=== PATIENT | female | born 1935 | race Caucasian/White ===

== ENCOUNTER 2017-12-12 12:12 | Emergency (ER) | payer MEDICARE, BC ==
[2017-12-12] MEDS ORDERED: LORazepam 2 MG/ML SDV IM ONE ×2 (13:07→13:52)
[2017-12-12] MEDS ORDERED: Haloperidol Lactate 5 MG/ML SDV IM ONE ×2 (13:07→13:52)
--- NOTE | 2017-12-12 13:22 | EDM.PDOCBH ---
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 She is supposed to go to the [facility]. Has a history of Alzheimer's and is exhibiting worsening combative behavior. She is on topical Seroquel and topical Ativan but these are not controlling her behaviors. She has reportedly been physically and verbally aggressive towards staff and they are no longer able to manage her. She sees a primary care provider and a psychiatric nurse practitioner. They have been in contact with the [facility] and she has been screened by [facility]. Plan will be to go to the [facility]. She is here for medical clearance. Per the CASINO CONTROLLER she has not had any fevers, vomiting, diarrhea or bloody stools. She is not complaining of anything. Patient is pleasantly demented and is unable to provide any accurate history. Patient's daughter is her power of commercial litigation attorney. She is present to the ER and signed paperwork for voluntary committal. Patient is a DNR, DNI. Patient Has a history of a right breast mass that her family and her primary care aware of. Daughter reports there has now been involvement to the right axilla. They're pursuing no treatment at this time. - Related Data Allergies Allergy/AdvReac Type Severity Reaction Status Date / Time acetaminophen [From Tylenol] Allergy Other Verified 12/12/17 12:42 amlodipine Allergy Other Verified 12/12/17 12:42 atorvastatin Allergy Other Verified 12/12/17 12:42 ciprofloxacin [From Cipro] Allergy Other Verified 12/12/17 12:42 latex Allergy Other Verified 12/12/17 12:42 nifedipine Allergy Other Verified 12/12/17 12:42 promethazine Allergy Other Verified 12/12/17 12:42 Quinolones Allergy Other Verified 12/12/17 12:42 rofecoxib Allergy Other Verified 12/12/17 12:42 Past Medical History Cardiovascular History: Reports: Other (See Below) Other Cardiovascular History: atherosclerotic heart disease Musculoskeletal History: Reports: Osteoarthritis Psychiatric History: Reports: Alzheimers Disease, Anxiety, Dementia, Depression , Other (See Below) Other Psychiatric History: insomnia Endocrine/Metabolic History: Reports: Diabetes, Type II Social & Family History - Tobacco Use Smoking Status *Q: Never Smoker - Caffeine Use Caffeine Use: Reports: Coffee, Tea - Recreational Drug Use Recreational Drug Use: No ED ROS GENERAL - Review of Systems Review Of Systems: Unable To Obtain (per CASINO CONTR[employer]ER) Constitutional: Denies: Fever GI/Abdominal: Denies: Bloody Stool, Diarrhea, Vomiting ED EXAM, BEHAVIORAL HEALTH - Physical Exam Exam: See Below Exam Limited By: No Limitations General Appearance: Alert, WD/WN, No Apparent Distress Respiratory/Chest: No Respiratory Distress, Lungs Clear, Normal Breath Sounds Cardiovascular: Normal Peripheral Pulses, Regular Rate, Rhythm, No Murmur GI/Abdominal: Soft, Non-Tender Neurological: Alert, Other (Confused conversation) Psychiatric: Alert. No: Threatening Behavior (Patient has been verbally aggressive but not physically aggressive toward staff.) Skin Exam: Warm, Dry, Normal color COURSE, BEHAVIORAL HEALTH COMP - Course Vital Signs: Last Vital Signs Temp 97.5 F 12/12/17 15:15 Pulse 79 12/12/17 15:15 Resp 16 12/12/17 15:15 BP 128/89 12/12/17 15:15 Pulse Ox 97 12/12/17 15:15 Orders, Labs, Meds: Active Orders 24 hr Category Date Time Status Initiate Restraint Protocol [RC] ASDIRECTED Care 12/12/17 13:07 Inactive Peripheral IV Care [RC] . DIRECTED Care 12/12/17 16:01 Active Magnesium Sulfate/Water [Magnesium Sulfate 2 GM in Med 12/12/17 15:57 Active Water 50 ML] 2 gm Premix Bag 1 bag IV ONETIME Sodium Chloride 0.9% [Normal Saline] 500 ml Med 12/12/17 15:57 Active IV ONETIME Sodium Chloride 0.9% [Saline Flush] Med 12/12/17 15:57 Active 10 ml FLUSH ASDIRECTED PRN Peripheral IV Insertion Adult [OM.PC] Routine Oth 12/12/17 15:57 Ordered Medication Orders Magnesium Sulfate 2 gm/ Premix 50 mls @ 50 mls/hr IV ONETIME ONE Stop: 12/12/17 16:56 Last Admin: 12/12/17 16:19 Dose: 50 mls/hr Sodium Chloride (Normal Saline) 500 mls @ 500 mls/hr IV ONETIME ONE Stop: 12/12/17 16:56 Last Admin: 12/12/17 16:18 Dose: 500 mls/hr Sodium Chloride (Saline Flush) 10 ml FLUSH ASDIRECTED PRN PRN Reason: Keep Vein Open Laboratory Tests 12/12/17 12/12/17 12/12/17 Range/Units 14:08 14:08 14:08 WBC 4.72 (3.98-10.04) K/mm3 RBC 4.05 (3.98-5.22) M/mm3 Hgb 12.7 (11.2-15.7) gm/L Hct 37.5 (34.1-44.9) % MCV 92.6 (79.4-94.8) fl MCH 31.4 (25.6-32.2) pg MCHC 33.9 (32.2-35.5) g/dl RDW Std Deviation 50.6 H (36.4-46.3) fL Plt Count 134 L (182-369) K/mm3 MPV 10.0 (9.4-12.3) fl Neut % (Auto) 62.8 (34.0-71.1) % Lymph % (Auto) 25.8 (19.3-51.7) % [place] % (Auto) 11.0 (4.7-12.5) % Eos % (Auto) 0 L (0.7-5.8) Baso % (Auto) 0.2 (0.1-1.2) % Neut # (Auto) 2.96 (1.56-6.13) K/mm3 Lymph # (Auto) 1.22 (1.18-3.74) K/mm3 [place] # (Auto) 0.52 H (0.24-0.36) K/mm3 Eos # (Auto) 0.00 L (0.04-0.36) K/mm3 Baso # (Auto) 0.01 (0.01-0.08) K/mm3 Sodium 141 (136-145) mEq/L Potassium 3.3 L (3.5-5.1) mEq/L Chloride 105 (98-107) mEq/L Carbon Dioxide 24 (21-32) mEq/L Anion Gap 15.3 H (5-15) BUN 17 (7-18) mg/dL Creatinine 0.9 (0.55-1.02) mg/dL Est Cr Clr Drug Dosing 40.55 mL/min Estimated GFR (MDRD) > 60 (>60) mL/min BUN/Creatinine Ratio 18.9 H (14-18) Glucose 92 (83-115) mg/dL Calcium 8.6 (8.5-10.1) mg/dL Magnesium 1.3 L (1.8-2.4) mg/dl Total Bilirubin 0.9 (0.2-1.0) mg/dL AST 19 (15-37) U/L ALT 13 L (14-59) U/L Alkaline Phosphatase 59 (46-116) U/L Total Protein 6.6 (6.4-8.2) g/dl Albumin 3.0 L (3.4-5.0) g/dl Globulin 3.6 gm/dL Albumin/Globulin Ratio 0.8 L (1-2) TSH 3rd Generation 0.843 (0.358-3.74) uIU/mL Urine Color (Yellow) Urine Appearance (Clear) Urine pH (5.0-8.0) Ur Specific [place] (1.005-1.030) Urine Protein (Negative) Urine Glucose (UA) (Negative) Urine Ketones (Negative) Urine Occult Blood (Negative) Urine Nitrite (Negative) Urine Bilirubin (Negative) Urine Urobilinogen (0.2-1.0) Ur Leukocyte Esterase (Negative) Urine RBC (0-5) /hpf Urine WBC (0-5) /hpf Ur Epithelial Cells (0-5) /hpf Urine Bacteria (FEW) /hpf Urine Mucus (FEW) /hpf Salicylates 2.1 L (2.8-20) mg/dL Urine Opiates Screen (NEGATIVE) Ur Buprenorphine Scrn (NEGATIVE) Ur Oxycodone Screen (NEGATIVE) Urine Methadone Screen (NEGATIVE) Ur Propoxyphene Screen (NEGATIVE) Acetaminophen 0 L (10-30) ug/mL Ur Barbiturates Screen (NEGATIVE) Ur Tricyclics Screen (NEGATIVE) Ur Phencyclidine Scrn (NEGATIVE) Ur Amphetamine Screen (NEGATIVE) U Methamphetamines Scrn (NEGATIVE) U Benzodiazepines Scrn (NEGATIVE) U Cocaine Metab Screen (NEGATIVE) U Marijuana (THC) Screen (NEGATIVE) Ethyl Alcohol 0.00 (0.00) gm% 12/12/17 12/12/17 Range/Units 15:25 15:25 WBC (3.98-10.04) K/mm3 RBC (3.98-5.22) M/mm3 Hgb (11.2-15.7) gm/L Hct (34.1-44.9) % MCV (79.4-94.8) fl MCH (25.6-32.2) pg MCHC (32.2-35.5) g/dl RDW Std Deviation (36.4-46.3) fL Plt Count (182-369) K/mm3 MPV (9.4-12.3) fl Neut % (Auto) (34.0-71.1) % Lymph % (Auto) (19.3-51.7) % [place] % (Auto) (4.7-12.5) % Eos % (Auto) (0.7-5.8) Baso % (Auto) (0.1-1.2) % Neut # (Auto) (1.56-6.13) K/mm3 Lymph # (Auto) (1.18-3.74) K/mm3 [place] # (Auto) (0.24-0.36) K/mm3 Eos # (Auto) (0.04-0.36) K/mm3 Baso # (Auto) (0.01-0.08) K/mm3 Sodium (136-145) mEq/L Potassium (3.5-5.1) mEq/L Chloride (98-107) mEq/L Carbon Dioxide (21-32) mEq/L Anion Gap (5-15) BUN (7-18) mg/dL Creatinine (0.55-1.02) mg/dL Est Cr Clr Drug Dosing mL/min Estimated GFR (MDRD) (>60) mL/min BUN/Creatinine Ratio (14-18) Glucose (83-115) mg/dL Calcium (8.5-10.1) mg/dL Magnesium (1.8-2.4) mg/dl Total Bilirubin (0.2-1.0) mg/dL AST (15-37) U/L ALT (14-59) U/L Alkaline Phosphatase (46-116) U/L Total Protein (6.4-8.2) g/dl Albumin (3.4-5.0) g/dl Globulin gm/dL Albumin/Globulin Ratio (1-2) TSH 3rd Generation (0.358-3.74) uIU/mL Urine Color Kimberly H (Yellow) Urine Appearance Clear (Clear) Urine pH 6.0 (5.0-8.0) Ur Specific [place] > or = 1.030 (1.005-1.030) Urine Protein 1+ H (Negative) Urine Glucose (UA) Negative (Negative) Urine Ketones 1+ H (Negative) Urine Occult Blood Negative (Negative) Urine Nitrite Negative (Negative) Urine Bilirubin 2+ H (Negative) Urine Urobilinogen 2.0 H (0.2-1.0) Ur Leukocyte Esterase Negative (Negative) Urine RBC 0-5 (0-5) /hpf Urine WBC 0-5 (0-5) /hpf Ur Epithelial Cells 0-5 (0-5) /hpf Urine Bacteria Few (FEW) /hpf Urine Mucus Not seen (FEW) /hpf Salicylates (2.8-20) mg/dL Urine Opiates Screen Negative (NEGATIVE) Ur Buprenorphine Scrn Negative (NEGATIVE) Ur Oxycodone Screen Negative (NEGATIVE) Urine Methadone Screen Negative (NEGATIVE) Ur Propoxyphene Screen Negative (NEGATIVE) Acetaminophen (10-30) ug/mL Ur Barbiturates Screen Negative (NEGATIVE) Ur Tricyclics Screen Negative (NEGATIVE) Ur Phencyclidine Scrn Negative (NEGATIVE) Ur Amphetamine Screen Negative (NEGATIVE) U Methamphetamines Scrn Negative (NEGATIVE) U Benzodiazepines Scrn Presumptive positive H (NEGATIVE) U Cocaine Metab Screen Negative (NEGATIVE) U Marijuana (THC) Screen Negative (NEGATIVE) Ethyl Alcohol (0.00) gm% Medications Generic Name Dose Route Start Last Admin Trade Name Freq PRN Reason Stop Dose Admin Magnesium Sulfate 2 gm/ Premix 50 mls @ 50 mls/hr 12/12/17 15:57 12/12/17 16: 19 IV 12/12/17 16:56 50 mls/hr ONETIME ONE Administration Sodium Chloride 500 mls @ 500 mls/hr 12/12/17 15:57 12/12/17 16:18 Normal Saline IV 12/12/17 16:56 500 mls/hr ONETIME ONE Administration Sodium Chloride 10 ml 12/12/17 15:57 Saline Flush FLUSH ASDIRECTED PRN Keep Vein Open Discontinued Medications Generic Name Dose Route Start Last Admin Trade Name Leti PRN Reason Stop Dose Admin Haloperidol Lactate 3 mg 12/12/17 13:07 12/12/17 13:28 Haldol IM 12/12/17 13:08 3 mg ONETIME ONE Administration Lorazepam 1 mg 12/12/17 13:07 12/12/17 13:28 Ativan IM 12/12/17 13:08 1 mg ONETIME ONE Administration Lorazepam 1 mg 12/12/17 16:38 12/12/17 16:43 Ativan IVPUSH 12/12/17 16:39 1 mg ONETIME ONE Administration Re-Assessment/Re-Exam: 16:21 Patient has not been combative on the ER. She has been verbally aggressive but has not been combative. Able to obtain labs, Cath urine specimen and give IM medications. We were able to place an IV and will give her IV fluids and magnesium as her magnesium is a little low. patient's daughter who is her power of commercial litigation attorney and present to the ER and signed paperwork so she is a voluntarily going to the [facility]. I discussed case with the patient's primary care provider, Dr. Ambriz at 14: 48. Reports that she has not seen her in several weeks. She has done a halfway clearance but does not any medical clearance for her. She has not had labs since July. Reports the right breast mass but states them is not pursuing treatment at this time. Discussed case with [facility]. They tell me that she has been screened and is clear to go the [facility]. I discussed the case Dr. Abdi at the [facility]. He agrees to accept the patient. We will send the patient by ambulance for IV fluids and monitoring as well as needed ativan and haldol. Medical Clearance: 12/12/17 16:59 Medically cleared to go to the [facility]. Discharge vs Psych Eval/Treatment:: 12/12/17 16:59 Patient to be transferred by EMS to the [facility]. Dr. Abdi accepting. Departure - Departure Time of Disposition: 17:00 Disposition: DC/Tfer to Psych Hosp/Unit 65 Condition: Fair Clinical Impression: Dementia, Alzheimer's dementia with behavioral disturbance - Discharge Information *PRESCRIPTION DRUG MONITORING PROGRAM REVIEWED*: No *COPY OF PRESCRIPTION DRUG MONITORING REPORT IN PATIENT SVETLANA: No Referrals: Izabella Jasso MD [Primary Care Provider] - Forms: ED Department Discharge Additional Instructions: Patient to go by ground ambulance for monitoring, IV fluids and as needed Ativan and Haldol. Dr. Orozco at the [facility] accepting. - My Orders Last 24 Hours: My Active Orders 12/12/17 13:07 Initiate Restraint Protocol [RC] ASDIRECTED 12/12/17 15:57 Magnesium Sulfate/Water [Magnesium Sulfate 2 GM in Water 50 ML] 2 gm Premix Bag 1 bag IV ONETIME Sodium Chloride 0.9% [Normal Saline] 500 ml IV ONETIME Sodium Chloride 0.9% [Saline Flush] 10 ml FLUSH ASDIRECTED PRN Peripheral IV Insertion Adult [OM.PC] Routine 12/12/17 16:01 Peripheral IV Care [RC] . DIRECTED - Assessment/Plan Last 24 Hours: My Active Orders 12/12/17 13:07 Initiate Restraint Protocol [RC] ASDIRECTED 12/12/17 15:57 Magnesium Sulfate/Water [Magnesium Sulfate 2 GM in Water 50 ML] 2 gm Premix Bag 1 bag IV ONETIME Sodium Chloride 0.9% [Normal Saline] 500 ml IV ONETIME Sodium Chloride 0.9% [Saline Flush] 10 ml FLUSH ASDIRECTED PRN Peripheral IV Insertion Adult [OM.PC] Routine 12/12/17 16:01 Peripheral IV Care [RC] . DIRECTED
[2017-12-12] MEDS ORDERED: diphenhydrAMINE 50 MG/ML SDV IM ONE (13:52)
[2017-12-12 14:59] LABS: ACETAMINOPHEN 0 ug/mL (10-30)
[2017-12-12] MEDS ORDERED: Magnesium Sulfate/Water 2 GM in Premix Bag 1 BAG IV ONE (15:57)
[2017-12-12] MEDS ORDERED: Sodium Chloride 0.9% 500 ML IV ONE (15:57)
[2017-12-12] MEDS ORDERED: Sodium Chloride 0.9% 10 ML Syringe FLUSH PRN (15:57)
[2017-12-12] MEDS ORDERED: LORazepam 2 MG/ML SDV IVPUSH ONE (16:38)
== END 2017-12-12 17:15 ==
LOC: JD.ED 12:12
DX: G30.9 Alzheimer's disease, unspecified (principal); F02.81 Dementia in other diseases classified elsewhere, unspecified severity, with behavioral disturbance; E11.9 Type 2 diabetes mellitus without complications; Z88.8 Allergy status to other drugs, medicaments and biological substances; Z91.040 Latex allergy status
CPT/HCPCS: 36415; 80053; 80306; 81001; 83735; 84443; 85025; 96365; 96372; 96375; 99285; G0480; J1630; J2060; J7040; 99284; J3475

== ENCOUNTER 2018-04-10 15:27 | Inpatient (IN) | payer MEDICARE, BC ==
[2018-04-10] MEDS ORDERED: Sodium Chloride 0.9% 1,000 ML IV ONE (16:06)
[2018-04-10] MEDS ORDERED: cefTRIAXone 1 GM in Sodium Chloride 0.9% 100 ML IV ONE (16:27)
--- NOTE | 2018-04-10 16:29 | EDM.PDOC ---
ED HPI GENERAL MEDICAL PROBLEM - General Chief Complaint: General Stated Complaint: DEHYDRATION AND UTI Time Seen by Provider: 04/10/18 15:36 Source of Information: Reports: Family (, daughter), RN, RN Notes Reviewed History Limitations: Reports: Physical Impairment (advanced dementia) - History of Present Illness INITIAL COMMENTS - FREE TEXT/NARRATIVE: The patient is sent from the [facility] assisted. We are told that the patient has had increased confusion and decreased oral intake this week. A BMP, CBC, and urinalysis by quick catheter were obtained yesterday. We have difficulty reading the facts of the lab results, but her sodium was found to be either 152 or 162, with a BUN/Cr of 37/1.15. Her CBC was remarkable only for platelets depressed at 68. Her urinalysis was apparently consistent with a UTI. Oral Bactrim was ordered, however, due to the patient's condition, she is refusing to take the antibiotic. She is therefore sent to us for IV fluid and IV antibiotics. The patient is DNR and DNI. Her PCP is Dr. Vazquez. - Related Data Allergies Allergy/AdvReac Type Severity Reaction Status Date / Time acetaminophen [From Tylenol] Allergy Other Verified 04/10/18 15:50 amlodipine Allergy Other Verified 04/10/18 15:50 atorvastatin Allergy Other Verified 04/10/18 15:50 ciprofloxacin [From Cipro] Allergy Other Verified 04/10/18 15:50 latex Allergy Other Verified 04/10/18 15:50 nifedipine Allergy Other Verified 04/10/18 15:50 promethazine Allergy Other Verified 04/10/18 15:50 Quinolones Allergy Other Verified 04/10/18 15:50 rofecoxib Allergy Other Verified 04/10/18 15:50 Home Meds: Home Meds Alpha Lipoic Acid 300 mg PO DAILY 04/10/18 [History] Baclofen 10 mg PO 0600,1400,2200 04/10/18 [History] Bisacodyl [Dulcolax] 10 mg RC DAILY PRN 04/10/18 [History] HYDROmorphone [Dilaudid] 2 mg PO Q4H PRN 04/10/18 [History] LORazepam [Ativan] 0.5 mg PO BEDTIME 04/10/18 [History] Magnesium Citrate 150 ml PO BID 04/10/18 [History] Melatonin 6 mg PO BEDTIME 04/10/18 [History] Multivitamin [Multivitamins] 1 each PO DAILY 04/10/18 [History] Naproxen Sodium [Aleve] 440 mg PO BEDTIME 04/10/18 [History] OLANZapine [Olanzapine Odt] 5 mg PO TID PRN 04/10/18 [History] OLANZapine [Olanzapine] 7.5 mg PO BID 04/10/18 [History] Ondansetron [Zofran ODT] 4 mg PO Q6H PRN 04/10/18 [History] Polyethylene Glycol 3350 [MiraLAX] 17 gm PO DAILY 04/10/18 [History] Pregabalin [Lyrica] 200 mg PO TID 04/10/18 [History] Sennosides [Senna] 8.6 mg PO DAILY PRN 04/10/18 [History] Sulfamethoxazole/Trimethoprim [Bactrim Ds Tablet] 1 each PO BID 04/10/18 [ History] Valproic Acid [Depakene] 250 mg PO BID 04/10/18 [History] traMADol [Ultram] 50 mg PO 0800,1200,1700 04/10/18 [History] Past Medical History HEENT History: Reports: Impaired Vision Cardiovascular History: Reports: CAD, High Cholesterol, Hypertension, [place] Musculoskeletal History: Reports: Osteoarthritis Neurological History: Reports: Alzheimers Disease (advanced) Psychiatric History: Reports: Anxiety, Depression Endocrine/Metabolic History: Reports: Other (See Below) (Prediabetes, resolved after weight loss) Oncologic (Cancer) History: Reports: Breast (Right breast mass on mammogram, but no confirming biopsy obtained, and no treatment given) - Past Surgical History HEENT Surgical History: Reports: Oral Surgery (dental extractions/dentures) Cardiovascular Surgical History: Reports: Coronary Artery Stent (x 2?), Vascular Surgery (varicose vein stripping) GI Surgical History: Reports: Cholecystectomy Social & Family History - Family History Family Medical History: Noncontributory - Tobacco Use Smoking Status *Q: Former Smoker Years of Tobacco use: 38 Packs/Tins Daily: 1 Month/Year Tobacco Last Used: Quit around 1989 - Caffeine Use Caffeine Use: Reports: Other Other Caffeine Use: unknown - Alcohol Use Alcohol Use History: No - Recreational Drug Use Recreational Drug Use: No - Living Situation & Occupation Living situation: Reports: , with Spouse, Extended Care Facility ( [facility] assisted) Occupation: Retired ED ROS GENERAL - Review of Systems Review Of Systems: ROS reveals no pertinent complaints other than HPI. ED EXAM, GENERAL - Physical Exam Exam: See Below Exam Limited By: No Limitations General Appearance: No Apparent Distress, Lethargic, Thin Ears: Normal External Exam Nose: Normal Inspection Throat/Mouth: Normal Inspection, Normal Lips, No Airway Compromise, Other (Dry oral mucosa) Head: Atraumatic, Normocephalic Neck: Normal Inspection Respiratory/Chest: No Respiratory Distress, Lungs Clear, Normal Breath Sounds, No Accessory Muscle Use Cardiovascular: Normal Peripheral Pulses, Regular Rate, Rhythm, No Edema, No Gallop, No JVD, No Murmur, No Rub Peripheral Pulses: 3+: Radial (L), Radial (R) GI/Abdominal: Normal Bowel Sounds, Soft, No Organomegaly, No Distention, No Abnormal Bruit, No Mass (Female) Exam: Deferred Rectal (Female) Exam: Deferred Extremities: Normal Inspection, Normal Capillary Refill Neurological: Inattentive Skin Exam: Warm, Dry, Intact, Normal Color, No Rash Course - Vital Signs Last Recorded V/S: Last Vital Signs Temp 36.8 C 04/10/18 15:40 Pulse 118 H 04/10/18 15:40 Resp 16 04/10/18 15:40 BP 118/74 04/10/18 15:40 Pulse Ox 94 L 04/10/18 16:00 - Orders/Labs/Meds Orders: Active Orders 24 hr Category Date Time Status Sodium Chloride 0.9% [Normal Saline] 1,000 ml Med 04/10/18 16:06 Active IV ONETIME cefTRIAXone [Rocephin] 1 gm Med 04/10/18 16:27 Active Sodium Chloride 0.9% [Normal Saline] 100 ml IV ONETIME Medication Orders Sodium Chloride (Normal Saline) 1,000 mls @ 999 mls/hr IV ONETIME ONE Stop: 04/10/18 17:06 Last Admin: 04/10/18 16:22 Dose: 999 mls/hr Ceftriaxone Sodium 1 gm/ (Sodium Chloride) 100 mls @ 200 mls/hr IV ONETIME ONE Stop: 04/10/18 16:56 Labs: Laboratory Tests 04/10/18 Range/Units 15:56 Sodium 158 H (136-145) mEq/L Potassium 3.7 (3.5-5.1) mEq/L Chloride 119 H (98-107) mEq/L Carbon Dioxide 27 (21-32) mEq/L Anion Gap 15.7 H (5-15) BUN 51 H (7-18) mg/dL Creatinine 1.5 H (0.55-1.02) mg/dL Est Cr Clr Drug Dosing TNP Estimated GFR (MDRD) 33 (>60) mL/min BUN/Creatinine Ratio 34.0 H (14-18) Glucose 117 H (83-115) mg/dL Calcium 8.7 (8.5-10.1) mg/dL Meds: Medications Generic Name Dose Route Start Last Admin Trade Name Freq PRN Reason Stop Dose Admin Sodium Chloride 1,000 mls @ 999 mls/hr 04/10/18 16:06 04/10/18 16:22 Normal Saline IV 04/10/18 17:06 999 mls/hr ONETIME ONE Administration Ceftriaxone Sodium 1 gm/ 100 mls @ 200 mls/hr 04/10/18 16:27 Sodium Chloride IV 04/10/18 16:56 ONETIME ONE - Re-Assessments/Exams Free Text/Narrative Re-Assessment/Exam: 04/10/18 16:23 From the labs that were obtained at the assisted yesterday, the patient has severe dehydration, with a sodium of either 152 or 162. I've ordered a BMP to see where we are at today, but there is no question but that the patient is going to require free water replacement. She is tachycardic, representing intravascular volume depletion. Volume should be replaced before free water, and the process will take a couple of days, therefore she will need to be admitted. Because the patient is not taking orals, we will start her on IV Bactrim. Case discussed with Dr. Marques at 16:19. She accepted the patient for admission, and will come by the ED to evaluate the patient. 04/10/18 16:29 It appears that we do not carry IV Bactrim at this facility. I discussed this with Dr. Marques. We will start the patient on IV Rocephin. 04/10/18 16:30 The BNP drawn here has returned. Her sodium is significantly elevated at 158, with a BUN/Cr of 51/1.5. Departure - Departure Time of Disposition: 16:23 Disposition: Admitted As Inpatient 66 Condition: Fair Clinical Impression: Severe dehydration, UTI (urinary tract infection), Volume depletion - Discharge Information *PRESCRIPTION DRUG MONITORING PROGRAM REVIEWED*: Not Applicable *COPY OF PRESCRIPTION DRUG MONITORING REPORT IN PATIENT SVETLANA: Not Applicable Referrals: Ricky Redman MD [Primary Care Provider] - - My Orders Last 24 Hours: My Active Orders 04/10/18 16:06 Sodium Chloride 0.9% [Normal Saline] 1,000 ml IV ONETIME 04/10/18 16:27 cefTRIAXone [Rocephin] 1 gm Sodium Chloride 0.9% [Normal Saline] 100 ml IV ONETIME - Assessment/Plan Last 24 Hours: My Active Orders 04/10/18 16:06 Sodium Chloride 0.9% [Normal Saline] 1,000 ml IV ONETIME 04/10/18 16:27 cefTRIAXone [Rocephin] 1 gm Sodium Chloride 0.9% [Normal Saline] 100 ml IV ONETIME
[2018-04-10] MEDS ORDERED: cefTRIAXone 1 GM AdvVial IV ONE (16:35)
[2018-04-10] MEDS ORDERED: OLANZapine 5 MG Tab PO PRN (18:54)
[2018-04-10] MEDS ORDERED: 50% Dextrose in Water 50 ML Syringe IVPUSH PRN (18:54)
[2018-04-10] MEDS ORDERED: Promethazine 6.25 MG in Sodium Chloride 0.9% 50 ML IV PRN (18:57)
[2018-04-10] MEDS ORDERED: Dextrose 5% in Water 1,000 ML IV SCH ×2 (19:00→19:15)
--- NOTE | 2018-04-10 20:08 | PCM.HP ---
H&P History of Present Illness - General Date of Service: 04/10/18 Admit Problem/Dx: Admission Diagnosis/Problem Admission Diagnosis/Problem UTI (urinary tract infection), uncomplicated Source of Information: Family, Old Records, Provider History Limitations: Reports: Altered Mental Status (h/o advanced dementia; currently non-verbal) - History of Present Illness Initial Comments - Free Text/Narative: This is an 83 yo female from home with past medical h/o CAD s/p stent x2, HLD, HTN, ND, OA, Advanced Alzheimer's Dz, Depression, Anxiety, Breast CA who comes in for UTI and hypernatremia. History is obtained from family in the ED, as patient is demented and currently nonverbal. Per family, pt has increased confusion and decreased oral intake this week. U/A was done yesterday at and was apparently consistent with a UTI. Pt was refusing to take PO antibiotics, so was sent to us for IVF and IV antibiotics. Her initial workup in the ED shows her chemistry is remarkable for Na 158, Cl 119, AGap 15.7, BUN 51, Cr 1.5, GFR 33, Glu 117. A BMP, CBC, and UA were obtained yesterday. ED had difficulty reading the facts of the lab results, but her Na was either 152 or 162, with a BUN/Cr of 37/1.15. Her CBC was remarkable only for platelets depressed at 68. Her UA was apparently consistent with a UTI per . She is subsequently admitted to the medical floor. She is a DNR/DNI. PCP is Dr. Vazquez. She is from [facility]. - Related Data Allergies/Adverse Reactions: Allergies Allergy/AdvReac Type Severity Reaction Status Date / Time acetaminophen [From Tylenol] Allergy Other Verified 04/10/18 15:50 amlodipine Allergy Other Verified 04/10/18 15:50 atorvastatin Allergy Other Verified 04/10/18 15:50 ciprofloxacin [From Cipro] Allergy Other Verified 04/10/18 15:50 latex Allergy Other Verified 04/10/18 15:50 nifedipine Allergy Other Verified 04/10/18 15:50 NSAIDS (Non-Steroidal Allergy Other Verified 04/10/18 18:30 Anti-Inflamma promethazine Allergy Other Verified 04/10/18 15:50 Quinolones Allergy Other Verified 04/10/18 15:50 rofecoxib Allergy Other Verified 04/10/18 15:50 Home Medications: Home Meds Bisacodyl [Dulcolax] 10 mg RECTAL DAILY PRN 04/10/18 [History] Bisacodyl [Dulcolax] 15 mg PO DAILY PRN 04/10/18 [History] Melatonin 6 mg PO BEDTIME 04/10/18 [History] OLANZapine [Olanzapine Odt] 5 mg PO QID PRN 04/10/18 [History] OLANZapine [Olanzapine] 7.5 mg PO 0800,1700 04/10/18 [History] Polyethylene Glycol 3350 [MiraLAX] 17 gm PO DAILY PRN 04/10/18 [History] Sulfamethoxazole/Trimethoprim [Bactrim Ds Tablet] 1 tab PO BID 04/10/18 [History ] Valproic Acid [Depakene] 375 mg PO 0800,1700 04/10/18 [History] traMADol [Ultram] 25 mg PO 0800,1200,1700 04/10/18 [History] Past Medical History HEENT History: Reports: Impaired Vision Cardiovascular History: Reports: CAD, High Cholesterol, Hypertension, ND Other Cardiovascular History: atherosclerotic heart disease Other Genitourinary History: family states probable breast cancer, have not tested for it Musculoskeletal History: Reports: Osteoarthritis Neurological History: Reports: Alzheimers Disease (advanced) Psychiatric History: Reports: Anxiety, Depression Other Psychiatric History: insomnia, aggressive behaviors Endocrine/Metabolic History: Reports: Other (See Below) (Prediabetes, resolved after weight loss) Oncologic (Cancer) History: Reports: Breast (Right breast mass on mammogram, but no confirming biopsy obtained, and no treatment given) Other Dermatologic History: fragile skin - Past Surgical History HEENT Surgical History: Reports: Oral Surgery (dental extractions/dentures) Cardiovascular Surgical History: Reports: Coronary Artery Stent (x 2?), Vascular Surgery (varicose vein stripping) GI Surgical History: Reports: Cholecystectomy Social & Family History - Family History Family Medical History: Noncontributory - Tobacco Use Smoking Status *Q: Former Smoker Years of Tobacco use: 38 Packs/Tins Daily: 1 Month/Year Tobacco Last Used: Quit around 1989 - Caffeine Use Caffeine Use: Reports: Other Other Caffeine Use: unknown - Recreational Drug Use Recreational Drug Use: No - Living Situation & Occupation Living situation: Reports: , with Spouse, [facility] Facility [facility] Occupation: Retired H&P Review of Systems - Review of Systems: Review Of Systems: Unable To Obtain (2/2 dementia/recent increased confusion and currently non-verbal) Psychiatric: Reports: Confusion Neurological: Reports: Confusion Exam - Exam Exam: See Below - Vital Signs Vital Signs: Last Vital Signs Temp 98.2 F 04/10/18 15:40 Pulse 118 H 04/10/18 15:40 Resp 16 04/10/18 15:40 BP 118/74 04/10/18 15:40 Pulse Ox 94 L 04/10/18 18:57 Weight: 110 lb - Exam Quality Assessment: Supplemental Oxygen (2L NC), DVT Prophylaxis General: Lethargic, Other (No apparent distress). No: Oriented HEENT: Conjunctiva Clear, EACs Clear, EOMI, Hearing Intact, Nares Patent, Normal Nasal Septum, Posterior Pharynx Clear, PERRLA. No: Mucosa Moist & [place] ( dry) Neck: Supple, Trachea Midline Lungs: Clear to Auscultation, Normal Respiratory Effort Cardiovascular: Regular Rate, Regular Rhythm GI/Abdominal Exam: Normal Bowel Sounds, Soft, Non-Tender, No Organomegaly, No Distention, No Abnormal Bruit, No Mass, Pelvis Stable (Female) Exam: Deferred Rectal (Female) Exam: Deferred Back Exam: Normal Inspection, Decreased Range of Motion Extremities: Normal Inspection, Non-Tender, No Pedal Edema, Normal Capillary Refill, Limited Range of Motion Peripheral Pulses: 2+: Posterior Tibial (L), Posterior Tibial (R), Dorsalis Pedis (L), Dorsalis Pedis (R) Skin: Warm, Dry, Other (ulcers present on buttocks) Neuro Extensive - Mental Status: Inattentive. No: Oriented x3 - Patient Data Lab Results Last 24 hrs: Laboratory Results - last 24 hr 04/10/18 Range/Units 15:56 Sodium 158 H (136-145) mEq/L Potassium 3.7 (3.5-5.1) mEq/L Chloride 119 H (98-107) mEq/L Carbon Dioxide 27 (21-32) mEq/L Anion Gap 15.7 H (5-15) BUN 51 H (7-18) mg/dL Creatinine 1.5 H (0.55-1.02) mg/dL Est Cr Clr Drug Dosing TNP Estimated GFR (MDRD) 33 (>60) mL/min BUN/Creatinine Ratio 34.0 H (14-18) Glucose 117 H (83-115) mg/dL Calcium 8.7 (8.5-10.1) mg/dL Result Diagrams: 04/10/18 15:56 - Problem List (1) Severe dehydration SNOMED Code(s): 840472209 ICD Code: E86.0 - DEHYDRATION Status: Acute Priority: High Current Visit: Yes (2) UTI (urinary tract infection) SNOMED Code(s): 48999160 ICD Code: N39.0 - URINARY TRACT INFECTION, SITE NOT SPECIFIED Status: Acute Priority: High Current Visit: Yes Qualifiers: Urinary tract infection type: site unspecified Hematuria presence: without hematuria Qualified Code(s): N39.0 - Urinary tract infection, site not specified (3) Volume depletion SNOMED Code(s): 39645862 ICD Code: E86.9 - VOLUME DEPLETION, UNSPECIFIED Status: Acute Priority: High Current Visit: Yes (4) Failure to thrive in adult SNOMED Code(s): 591528700 ICD Code: R62.7 - ADULT FAILURE TO THRIVE Status: Acute Priority: High Current Visit: Yes Problem List Initiated/Reviewed/Updated: Yes Orders Last 24hrs: Active Orders 24 hr Category Date Time Status Admission Status [Patient Status] [ADT] Routine ADT 04/10/18 16:39 Active Antiembolic Devices [RC] BID Care 04/10/18 19:01 Active Bedrest Bathroom Privileges [RC] BID Care 04/10/18 18:57 Active Blood Glucose Check, Bedside [RC] QIDACANDBED Care 04/10/18 18:54 Active Height and Weight [RC] DAILY Care 04/10/18 18:57 Active Insert Kuo Catheter [Insert Urinary Catheter] [OM.PC] Care 04/10/18 16:45 Ordered Q24H Intake and Output [RC] 04,16 Care 04/10/18 18:58 Active May Shower [RC] ASDIRECTED Care 04/10/18 18:57 Active Oxygen Therapy [RC] PRN Care 04/10/18 18:57 Active Urinary Catheter Assessment [RC] ASDIRECTED Care 04/10/18 16:40 Active VTE/DVT Education [RC] BID Care 04/10/18 18:57 Active Vital Signs [RC] Q4HR Care 04/10/18 18:57 Active Consult to Case Management/[employer]mercial [employer] Sales Executive [CONS] Cons 04/10/18 18:57 Active Routine OT Evaluation and Treatment [CONS] Routine Cons 04/10/18 18:57 Active PT Evaluation and Treatment [CONS] Routine Cons 04/10/18 18:57 Active NPO [Nothing Per Oral Diet] [DIET] Diet 04/11/18 Breakfast Active BASIC METABOLIC PANEL,BMP [CHEM] AM Lab 04/11/18 05:11 Ordered BASIC METABOLIC PANEL,BMP [CHEM] AM Lab 04/12/18 05:11 Ordered BASIC METABOLIC PANEL,BMP [CHEM] AM Lab 04/13/18 05:11 Ordered BASIC METABOLIC PANEL,BMP [CHEM] AM Lab 04/14/18 05:11 Ordered BASIC METABOLIC PANEL,BMP [CHEM] AM Lab 04/15/18 05:11 Ordered C-REACTIVE PROTEIN [CHEM] AM Lab 04/11/18 05:11 Ordered C-REACTIVE PROTEIN [CHEM] AM Lab 04/12/18 05:11 Ordered C-REACTIVE PROTEIN [CHEM] AM Lab 04/13/18 05:11 Ordered C-REACTIVE PROTEIN [CHEM] AM Lab 04/14/18 05:11 Ordered C-REACTIVE PROTEIN [CHEM] AM Lab 04/15/18 05:11 Ordered CBC WITH AUTO DIFF [HEME] AM Lab 04/11/18 05:11 Ordered CBC WITH AUTO DIFF [HEME] AM Lab 04/12/18 05:11 Ordered CBC WITH AUTO DIFF [HEME] AM Lab 04/13/18 05:11 Ordered CBC WITH AUTO DIFF [HEME] AM Lab 04/14/18 05:11 Ordered CBC WITH AUTO DIFF [HEME] AM Lab 04/15/18 05:11 Ordered MAGNESIUM [CHEM] AM Lab 04/11/18 05:11 Ordered MAGNESIUM [CHEM] AM Lab 04/12/18 05:11 Ordered MAGNESIUM [CHEM] AM Lab 04/13/18 05:11 Ordered MAGNESIUM [CHEM] AM Lab 04/14/18 05:11 Ordered MAGNESIUM [CHEM] AM Lab 04/15/18 05:11 Ordered METH-RESIST S.AUR,MRSA BY PCR [MOLEC] Routine Lab 04/10/18 19:16 Received Dextrose 5% in Water 1,000 ml Med 04/10/18 19:15 Active IV ASDIRECTED Dextrose 50% in Water Med 04/10/18 18:54 Active 50 ml IVPUSH ASDIRECTED PRN Insulin Lispro [HumaLOG] Med 04/10/18 22:00 Active See Protocol SUBCUT QIDACANDBED OLANZapine [ZyPREXA] Med 04/10/18 18:54 Active 5 mg PO TID PRN OLANZapine [ZyPREXA] Med 04/11/18 08:00 Active 7.5 mg PO 0800,1700 Polyethylene Glycol 3350 [MiraLAX] Med 04/11/18 09:00 Active 17 gm PO DAILY Promethazine [Phenergan] 6.25 mg Med 04/10/18 18:57 Active Sodium Chloride 0.9% [Normal Saline] 50 ml IV Q6H Valproic Acid [Depakene Syrup] Med 04/11/18 08:00 Active 250 mg PO 0800,1700 traMADol [Ultram] Med 04/11/18 08:00 Active 50 mg PO 0800,1200,1700 Sequential Compression Device [OM.PC] Per Unit Routine Oth 04/10/18 18:59 Ordered Resuscitation Status Routine Resus Stat 04/10/18 18:57 Ordered Medication Orders Dextrose/Water (Dextrose 50% In Water) 50 ml IVPUSH ASDIRECTED PRN PRN Reason: Hypoglycemia Promethazine HCl 6.25 mg/ (Sodium Chloride) 50.25 mls @ 100 mls/hr IV Q6H PRN PRN Reason: Nausea/Vomiting Dextrose/Water (Dextrose 5% In Water) 1,000 mls @ 250 mls/hr IV ASDIRECTED POLLO Insulin Human Lispro (Humalog) 0 unit SUBCUT QIDACANDBED [facility]; Protocol Olanzapine (Zyprexa) 5 mg PO TID PRN PRN Reason: Agitation Olanzapine (Zyprexa) 7.5 mg PO 0800,1700 [facility] Polyethylene Glycol (Miralax) 17 gm PO DAILY [facility] Tramadol HCl (Ultram) 50 mg PO 0800,1200,1700 [facility] Valproic Acid (Depakene Syrup) 250 mg PO 0800,1700 [facility] Assessment/Plan Comment:: Assessment/Plan: Acute: UTI * U/A was done yesterday and was apparently consistent with a UTI per * Pt was refusing to take PO antibiotics, so was sent to hospital for IVF and IV antibiotics * U/A and culture pending * Kuo catheter placed * Rocephin started in ED--> continue Hypernatremia * Likely 2/2 dehydration/decreased oral intake * 152 (yesterday)--> 158 in ED * D5W IVF * Monitor Increased Confusion * Acute on Chronic * Risk Factors: h/o Dementia, Dehydration, UTI * Fall Precautions * Monitor Failure to Thrive * Risk Factors: h/o Advanced Dementia w/ increased confusion, h/o depression, decreased oral intake * Physical fraility, fatigue, cachetic appearance * Consult CM/SW * Consult PT/OT Chronic: CAD s/p stent x2 HLD HTN ND OA Advanced Alzheimer's Dz Depression Anxiety Breast CA (no biopsy done) Plan: Admit to Medical Floor Routine AM Labs Contact Precautions- MRSA positive NPO DVT/GI prophylaxis CM/SW PT/OT Code Status: DNR/DNI; PCP: Dr. Vazquez From [facility]
[2018-04-10] MEDS: Dextrose 5% in Water 1,000 ML IV SCH (21:19)
[2018-04-10] MEDS ORDERED: Polyethylene Glycol 3350 Powder 17 GM Packet PO PRN (21:20)
[2018-04-10] MEDS ORDERED: Bisacodyl 5 MG Tab PO PRN (21:29)
[2018-04-10] MEDS ORDERED: Bisacodyl 10 MG Supp RECTAL PRN (21:29)
[2018-04-10] MEDS ORDERED: Insulin Lispro 100 Unit/ML 3 ML KwikPen SUBCUT SCH (22:00)
[2018-04-11] MEDS: Insulin Lispro 100 Unit/ML 3 ML KwikPen SUBCUT SCH ×3 (00:24→11:42)
[2018-04-11] MEDS ORDERED: Valproic Acid 250 MG/5 ML Syrup ML (473 ML Bottle) PO SCH (08:00)
[2018-04-11] MEDS ORDERED: traMADol 50 MG Tab PO SCH (08:00)
[2018-04-11] MEDS: traMADol 50 MG Tab PO SCH ×3 (08:32→17:30)
[2018-04-11] MEDS: Valproic Acid 250 MG/5 ML Syrup ML (473 ML Bottle) PO SCH ×2 (08:32→17:30)
[2018-04-11] MEDS: OLANZapine 5 MG Tab PO SCH ×2 (08:33→17:30)
[2018-04-11] MEDS ORDERED: Polyethylene Glycol 3350 Powder 17 GM Packet PO SCH (09:00)
[2018-04-11] MEDS ORDERED: Famotidine 20 MG/2 ML SDV IVPUSH SCH (09:00)
[2018-04-11] MEDS: Dextrose 5% in Water 1,000 ML IV SCH ×2 (11:10→23:53)
[2018-04-11] MEDS ORDERED: Morphine 10 MG/0.5 ML Oral Syringe SL PRN (13:35)
[2018-04-11] MEDS ORDERED: Potassium Chloride 10 MEQ in Premix Bag 1 BAG IV SCH (15:00)
--- NOTE | 2018-04-11 15:58 | PCM.PN ---
- General Info Date of Service: 04/11/18 Admission Dx/Problem (Free Text): Admission Diagnosis/Problem Admission Diagnosis/Problem UTI (urinary tract infection), uncomplicated Subjective Update: In to see Rivka and her family with Dr. Marques, nursing and TEZ Haskins for a family meeting. She is laying in bed comfortably, but is still nonverbal at this time. We discussed the various options of care with her family and her daughter, the legal guardian, made it clear that they would like Rivka to be switched to Comfort Measures. At this time, they would still like the IVF, Rocephin, Rothman and O2 for comfort reasons, but everything else that requires any "poking" such as labs they would like discontinued. At this time, they would like to get her re-hydrated with IVF over the weekend and returned to [employer] Saturday on comfort measures as well. They would like to also continue the rothman and O2 at that time. All questions and concerns were answered. No concerns from nursing. Please see TEZ notes for more details. They would also like to see if she can drink water. Will order a bedside swallow evaluation to make sure it is safe for her. Functional Status: Reports: Pain Controlled, Urinating (indwelling rothman catheter in place) - Review of Systems Neurological: Reports: Confusion Psychiatric: Reports: Confusion Systems Review Comment:: Unable to obtain as pt is confused, has advanced dementia, and is non-verbal at this time. - Patient Data Vitals - Most Recent: Last Vital Signs Temp 98.4 F 04/11/18 08:29 Pulse 90 04/11/18 11:29 Resp 18 04/11/18 11:29 BP 118/48 L 04/11/18 11:29 Pulse Ox 93 L 04/11/18 11:29 Weight - Most Recent: 122 lb 1.013 oz I&O - Last 24 Hours: Intake & Output 04/11/18 04/11/18 04/11/18 06:59 14:59 22:59 Intake Total 524 Output Total 350 Balance 174 Lab Results Last 24 Hours: Laboratory Results - last 24 hr 04/10/18 04/10/18 04/10/18 Range/Units 15:56 19:16 22:50 WBC (3.98-10.04) K/mm3 RBC (3.98-5.22) M/mm3 Hgb (11.2-15.7) gm/L Hct (34.1-44.9) % MCV (79.4-94.8) fl MCH (25.6-32.2) pg MCHC (32.2-35.5) g/dl RDW Std Deviation (36.4-46.3) fL Plt Count (182-369) K/mm3 MPV (9.4-12.3) fl Neut % (Auto) (34.0-71.1) % Lymph % (Auto) (19.3-51.7) % Hill % (Auto) (4.7-12.5) % Eos % (Auto) (0.7-5.8) Baso % (Auto) (0.1-1.2) % Neut # (Auto) (1.56-6.13) K/mm3 Lymph # (Auto) (1.18-3.74) K/mm3 Hill # (Auto) (0.24-0.36) K/mm3 Eos # (Auto) (0.04-0.36) K/mm3 Baso # (Auto) (0.01-0.08) K/mm3 Manual Slide Review Sodium 158 H (136-145) mEq/L Potassium 3.7 (3.5-5.1) mEq/L Chloride 119 H (98-107) mEq/L Carbon Dioxide 27 (21-32) mEq/L Anion Gap 15.7 H (5-15) BUN 51 H (7-18) mg/dL Creatinine 1.5 H (0.55-1.02) mg/dL Est Cr Clr Drug Dosing TNP Estimated GFR (MDRD) 33 (>60) mL/min BUN/Creatinine Ratio 34.0 H (14-18) Glucose 117 H (83-115) mg/dL POC Glucose (83-110) mg/dL Calcium 8.7 (8.5-10.1) mg/dL Magnesium (1.8-2.4) mg/dl C-Reactive Protein (<1.0) mg/dL Urine Color Kimberly H (Yellow) Urine Appearance Clear (Clear) Urine pH 5.5 (5.0-8.0) Ur Specific Start 1.025 (1.005-1.030) Urine Protein 1+ H (Negative) Urine Glucose (UA) Negative (Negative) Urine Ketones Trace H (Negative) Urine Occult Blood Negative (Negative) Urine Nitrite Negative (Negative) Urine Bilirubin 2+ H (Negative) Urine Urobilinogen 1.0 (0.2-1.0) Ur Leukocyte Esterase Negative (Negative) Urine RBC 0-5 (0-5) /hpf Urine WBC 0-5 (0-5) /hpf Ur Epithelial Cells 0-5 (0-5) /hpf Ur Squamous Epith Cells 0-5 (0-5) /hpf Amorphous Sediment Moderate H (NOT SEEN) /hpf Urine Bacteria Few (FEW) /hpf Hyaline Casts 0-5 (0-5) /lpf Urine Mucus Few (FEW) /hpf MRSA (PCR) Positive H 04/11/18 04/11/18 04/11/18 Range/Units 00:21 05:45 05:45 WBC 8.43 (3.98-10.04) K/mm3 RBC 3.53 L (3.98-5.22) M/mm3 Hgb 10.2 L (11.2-15.7) gm/L Hct 35.0 (34.1-44.9) % MCV 99.2 H (79.4-94.8) fl MCH 28.9 (25.6-32.2) pg MCHC 29.1 L (32.2-35.5) g/dl RDW Std Deviation 49.7 H (36.4-46.3) fL Plt Count 57 L (182-369) K/mm3 MPV 11.0 (9.4-12.3) fl Neut % (Auto) 84.5 H (34.0-71.1) % Lymph % (Auto) 7.7 L (19.3-51.7) % Hill % (Auto) 7.5 (4.7-12.5) % Eos % (Auto) 0.1 L (0.7-5.8) Baso % (Auto) 0.1 (0.1-1.2) % Neut # (Auto) 7.12 H (1.56-6.13) K/mm3 Lymph # (Auto) 0.65 L (1.18-3.74) K/mm3 Hill # (Auto) 0.63 H (0.24-0.36) K/mm3 Eos # (Auto) 0.01 L (0.04-0.36) K/mm3 Baso # (Auto) 0.01 (0.01-0.08) K/mm3 Manual Slide Review Abnormal smear Sodium 157 H (136-145) mEq/L Potassium 3.1 L (3.5-5.1) mEq/L Chloride 122 H (98-107) mEq/L Carbon Dioxide 27 (21-32) mEq/L Anion Gap 11.1 (5-15) BUN 46 H (7-18) mg/dL Creatinine 1.2 H (0.55-1.02) mg/dL Est Cr Clr Drug Dosing 31.21 Estimated GFR (MDRD) 43 (>60) mL/min BUN/Creatinine Ratio 38.3 H (14-18) Glucose 139 H (83-115) mg/dL POC Glucose 144 H (83-110) mg/dL Calcium 8.0 L (8.5-10.1) mg/dL Magnesium 2.3 (1.8-2.4) mg/dl C-Reactive Protein 11.7 H* (<1.0) mg/dL Urine Color (Yellow) Urine Appearance (Clear) Urine pH (5.0-8.0) Ur Specific Start (1.005-1.030) Urine Protein (Negative) Urine Glucose (UA) (Negative) Urine Ketones (Negative) Urine Occult Blood (Negative) Urine Nitrite (Negative) Urine Bilirubin (Negative) Urine Urobilinogen (0.2-1.0) Ur Leukocyte Esterase (Negative) Urine RBC (0-5) /hpf Urine WBC (0-5) /hpf Ur Epithelial Cells (0-5) /hpf Ur Squamous Epith Cells (0-5) /hpf Amorphous Sediment (NOT SEEN) /hpf Urine Bacteria (FEW) /hpf Hyaline Casts (0-5) /lpf Urine Mucus (FEW) /hpf MRSA (PCR) 04/11/18 04/11/18 Range/Units 05:46 11:26 WBC (3.98-10.04) K/mm3 RBC (3.98-5.22) M/mm3 Hgb (11.2-15.7) gm/L Hct (34.1-44.9) % MCV (79.4-94.8) fl MCH (25.6-32.2) pg MCHC (32.2-35.5) g/dl RDW Std Deviation (36.4-46.3) fL Plt Count (182-369) K/mm3 MPV (9.4-12.3) fl Neut % (Auto) (34.0-71.1) % Lymph % (Auto) (19.3-51.7) % Hill % (Auto) (4.7-12.5) % Eos % (Auto) (0.7-5.8) Baso % (Auto) (0.1-1.2) % Neut # (Auto) (1.56-6.13) K/mm3 Lymph # (Auto) (1.18-3.74) K/mm3 Hill # (Auto) (0.24-0.36) K/mm3 Eos # (Auto) (0.04-0.36) K/mm3 Baso # (Auto) (0.01-0.08) K/mm3 Manual Slide Review Sodium (136-145) mEq/L Potassium (3.5-5.1) mEq/L Chloride (98-107) mEq/L Carbon Dioxide (21-32) mEq/L Anion Gap (5-15) BUN (7-18) mg/dL Creatinine (0.55-1.02) mg/dL Est Cr Clr Drug Dosing Estimated GFR (MDRD) (>60) mL/min BUN/Creatinine Ratio (14-18) Glucose (83-115) mg/dL POC Glucose 160 H 159 H (83-110) mg/dL Calcium (8.5-10.1) mg/dL Magnesium (1.8-2.4) mg/dl C-Reactive Protein (<1.0) mg/dL Urine Color (Yellow) Urine Appearance (Clear) Urine pH (5.0-8.0) Ur Specific Start (1.005-1.030) Urine Protein (Negative) Urine Glucose (UA) (Negative) Urine Ketones (Negative) Urine Occult Blood (Negative) Urine Nitrite (Negative) Urine Bilirubin (Negative) Urine Urobilinogen (0.2-1.0) Ur Leukocyte Esterase (Negative) Urine RBC (0-5) /hpf Urine WBC (0-5) /hpf Ur Epithelial Cells (0-5) /hpf Ur Squamous Epith Cells (0-5) /hpf Amorphous Sediment (NOT SEEN) /hpf Urine Bacteria (FEW) /hpf Hyaline Casts (0-5) /lpf Urine Mucus (FEW) /hpf MRSA (PCR) Med Orders - Current: Current Medications Bisacodyl (Dulcolax) 15 mg PO DAILY PRN PRN Reason: Constipation Bisacodyl (Dulcolax) 10 mg RECTAL DAILY PRN PRN Reason: constipation Dextrose/Water (Dextrose 50% In Water) 50 ml IVPUSH ASDIRECTED PRN PRN Reason: Hypoglycemia Promethazine HCl 6.25 mg/ (Sodium Chloride) 50.25 mls @ 100 mls/hr IV Q6H PRN PRN Reason: Nausea/Vomiting Ceftriaxone Sodium 1 gm/ (Sodium Chloride) 100 mls @ 200 mls/hr IV Q24H [facility] Dextrose/Water (Dextrose 5% In Water) 1,000 mls @ 75 mls/hr IV ASDIRECTED [facility] Last Admin: 04/11/18 11:10 Dose: 75 mls/hr Morphine Sulfate (Morphine 10 Mg/0.5 Ml Oral Syringe) 2.5 mg SL Q4H PRN PRN Reason: Pain (moderate 4-6) Olanzapine (Zyprexa) 5 mg PO TID PRN PRN Reason: Agitation Olanzapine (Zyprexa) 7.5 mg PO 0800,1700 [facility] Last Admin: 04/11/18 08:33 Dose: Not Given Polyethylene Glycol (Miralax) 17 gm PO DAILY PRN PRN Reason: Constipation Tramadol HCl (Ultram) 25 mg PO 0800,1200,1700 [facility] Last Admin: 04/11/18 11:14 Dose: Not Given Valproic Acid (Depakene Syrup) 375 mg PO BID@0800,1700 [facility] Last Admin: 04/11/18 08:32 Dose: Not Given Discontinued Medications Ceftriaxone Sodium (Rocephin) Confirm Administered Dose 1 gm IV .STK-MED ONE Stop: 04/10/18 16:36 Last Admin: 04/10/18 16:57 Dose: Not Given Famotidine (Pepcid) 20 mg IVPUSH DAILY [facility] Last Admin: 04/11/18 08:33 Dose: 20 mg Sodium Chloride (Normal Saline) 1,000 mls @ 999 mls/hr IV ONETIME ONE Stop: 04/10/18 17:06 Last Admin: 04/10/18 16:22 Dose: 999 mls/hr Ceftriaxone Sodium 1 gm/ (Sodium Chloride) 100 mls @ 200 mls/hr IV ONETIME ONE Stop: 04/10/18 16:56 Last Admin: 04/10/18 16:56 Dose: 200 mls/hr Dextrose/Water (Dextrose 5% In Water) 1,000 mls @ 100 mls/hr IV ASDIRECTED [facility] Dextrose/Water (Dextrose 5% In Water) 1,000 mls @ 250 mls/hr IV ASDIRECTED [facility] Potassium Chloride 10 meq/ (Premix) 100 mls @ 100 mls/hr IV Q1H [facility] Stop: 04/11/18 20:59 Last Admin: 04/11/18 15:41 Dose: Not Given Insulin Human Lispro (Humalog) 0 unit SUBCUT QIDACANDBED [facility]; Protocol Insulin Human Lispro (Humalog) 0 unit SUBCUT Q6HR [facility]; Protocol Last Admin: 04/11/18 11:42 Dose: Not Given Morphine Sulfate (Morphine 10 Mg/0.5 Ml Oral Syringe) 2.5 mg SL Q4H PRN PRN Reason: Pain (moderate 4-6) Polyethylene Glycol (Miralax) 17 gm PO DAILY [facility] Tramadol HCl (Ultram) 50 mg PO 0800,1200,1700 [facility] Valproic Acid (Depakene Syrup) 250 mg PO 0800,1700 [facility] - Exam Quality Assessment: Supplemental Oxygen (2L NC), Urine Catheter General: Alert, No Acute Distress, Lethargic. No: Oriented HEENT: Pupils Equal, Pupils Reactive. No: Mucous Membr. Moist/[place] (dry) Neck: Supple Lungs: Clear to Auscultation, Normal Respiratory Effort Cardiovascular: Regular Rate, Regular Rhythm GI/Abdominal Exam: Normal Bowel Sounds, Soft, Non-Tender, No Organomegaly, No Distention, No Abnormal Bruit, No Mass, Pelvis Stable (Female) Exam: Deferred Back Exam: Normal Inspection Extremities: Normal Inspection, Normal Range of Motion, Non-Tender, No Pedal Edema, Normal Capillary Refill Peripheral Pulses: 2+: Posterior Tibial (L), Posterior Tibial (R), Dorsalis Pedis (L), Dorsalis Pedis (R) Skin: Warm, Dry, Other (ulcers on buttocks) Wound/Incisions: Healing Well, Dressing Dry and Intact Neurological: No New Focal Deficit Psy/Mental Status: Alert - Problem List & Annotations (1) Severe dehydration SNOMED Code(s): 509006031 Code(s): E86.0 - DEHYDRATION Status: Acute Priority: High Current Visit : Yes (2) UTI (urinary tract infection) SNOMED Code(s): 82443225 Code(s): N39.0 - URINARY TRACT INFECTION, SITE NOT SPECIFIED Status: Acute Priority: High Current Visit: Yes Qualifiers: Urinary tract infection type: site unspecified Hematuria presence: without hematuria Qualified Code(s): N39.0 - Urinary tract infection, site not specified (3) Volume depletion SNOMED Code(s): 14476034 Code(s): E86.9 - VOLUME DEPLETION, UNSPECIFIED Status: Acute Priority: High Current Visit: Yes (4) Failure to thrive in adult SNOMED Code(s): 622796642 Code(s): R62.7 - ADULT FAILURE TO THRIVE Status: Acute Priority: High Current Visit: Yes - Problem List Review Problem List Initiated/Reviewed/Updated: Yes - My Orders Last 24 Hours: My Active Orders 04/10/18 18:54 Dextrose 50% in Water 50 ml IVPUSH ASDIRECTED PRN OLANZapine [ZyPREXA] 5 mg PO TID PRN 04/10/18 18:57 Bedrest Bathroom Privileges [RC] BID Height and Weight [RC] 04 July Shower [RC] DAILY Oxygen Therapy [RC] PRN Vital Signs [RC] QSHIFT Consult to Case Management/Recyclable Materials Sorter [CONS] Routine Promethazine [Phenergan] 6.25 mg Sodium Chloride 0.9% [Normal Saline] 50 ml IV Q6H 04/10/18 18:58 Intake and Output [RC] 04,16 04/10/18 21:20 Polyethylene Glycol 3350 [MiraLAX] 17 gm PO DAILY PRN 04/10/18 21:29 Bisacodyl [Dulcolax] 10 mg RECTAL DAILY PRN Bisacodyl [Dulcolax] 15 mg PO DAILY PRN 04/10/18 22:50 CULTURE URINE [RM] Routine 04/11/18 08:00 OLANZapine [ZyPREXA] 7.5 mg PO 0800,1700 Valproic Acid [Depakene Syrup] 375 mg PO BID@0800,1700 traMADol [Ultram] 25 mg PO 0800,1200,1700 04/11/18 15:42 Code Status [Resuscitation Status] Routine 04/11/18 15:45 Swallow Screen [Nursing Bedside Swallow Screen] [RC] ASDIRECTED 04/11/18 17:00 cefTRIAXone [Rocephin] 1 gm Sodium Chloride 0.9% [Normal Saline] 100 ml IV Q24H 04/11/18 Breakfast NPO [Nothing Per Oral Diet] [DIET] - Plan Plan:: Assessment/Plan: Acute: UTI * U/A was done yesterday and was apparently consistent with a UTI per [facility] * Pt was refusing to take PO antibiotics, so was sent to hospital for IVF and IV antibiotics * U/A and culture pending * Rothman catheter placed * Rocephin started in ED--> continue per family request (pt is now comfort measures) Hypernatremia * Likely 2/2 dehydration/decreased oral intake * 152 (yesterday)--> 158 in ED * D5W IVF * Monitor--> PT IS NOW COMFORT MEASURES AND FAMILY DOES NOT WANT MONITORED Increased Confusion * Acute on Chronic * Risk Factors: h/o Dementia, Dehydration, UTI * Fall Precautions * Monitor Failure to Thrive * Risk Factors: h/o Advanced Dementia w/ increased confusion, h/o depression, decreased oral intake * Physical fraility, fatigue, cachetic appearance * Consult CM/SW * Consult PT/OT * PT HAS BEEN CHANGED TO COMFORT MEASURES COMFORT MEASURES * Daughter (Legal guardian) has made decision with family * Only want IVF, Antibiotics, O2 and rothman for now * NO LABS * NPO unless passes swallow eval, then would like sips of water * Continue home medications if she is able to swallow * D/C on COMFORT MEASURES on Saturday with rothman and O2 Chronic: CAD s/p stent x2 HLD HTN MA OA Advanced Alzheimer's Dz Depression Anxiety Breast CA (no biopsy done) Plan: Admit to Medical Floor Routine AM Labs Contact Precautions- MRSA positive NPO DVT/GI prophylaxis CM/SW PT/OT Code Status: DNR/DNI/COMFORT MEASURES; PCP: Dr. Vazquez From [facility]
[2018-04-11] MEDS: cefTRIAXone 1 GM in Sodium Chloride 0.9% 100 ML IV SCH (17:33)
[2018-04-12] MEDS: Valproic Acid 250 MG/5 ML Syrup ML (473 ML Bottle) PO SCH ×2 (08:05→16:07)
[2018-04-12] MEDS: traMADol 50 MG Tab PO SCH ×3 (08:06→16:08)
[2018-04-12] MEDS: OLANZapine 5 MG Tab PO SCH ×2 (08:06→16:08)
--- NOTE | 2018-04-12 12:03 | PCM.PN ---
- General Info Date of Service: 04/12/18 Functional Status: Reports: Pain Controlled - Review of Systems General: Reports: No Symptoms HEENT: Reports: No Symptoms Pulmonary: Reports: No Symptoms Cardiovascular: Reports: No Symptoms Gastrointestinal: Reports: No Symptoms Genitourinary: Reports: No Symptoms Musculoskeletal: Reports: No Symptoms Skin: Reports: No Symptoms Neurological: Reports: No Symptoms Psychiatric: Reports: No Symptoms - Patient Data Vitals - Most Recent: Last Vital Signs Temp 37.2 C 04/12/18 09:13 Pulse 96 04/12/18 09:13 Resp 20 04/12/18 09:13 BP 107/46 L 04/12/18 09:13 Pulse Ox 94 L 04/12/18 09:13 Weight - Most Recent: 55.367 kg I&O - Last 24 Hours: Intake & Output 04/11/18 04/12/18 04/12/18 22:59 06:59 14:59 Intake Total 752 1500 Output Total 125 150 Balance 627 1350 [place] Results Last 24 Hours: Microbiology 04/10/18 22:50 Urine Culture - Final Urine, Clean Catch NO GROWTH AFTER 2 DAYS Med Orders - Current: Current Medications Bisacodyl (Dulcolax) 15 mg PO DAILY PRN PRN Reason: Constipation Bisacodyl (Dulcolax) 10 mg RECTAL DAILY PRN PRN Reason: constipation Dextrose/Water (Dextrose 50% In Water) 50 ml IVPUSH ASDIRECTED PRN PRN Reason: Hypoglycemia Promethazine HCl 6.25 mg/ (Sodium Chloride) 50.25 mls @ 100 mls/hr IV Q6H PRN PRN Reason: Nausea/Vomiting Ceftriaxone Sodium 1 gm/ (Sodium Chloride) 100 mls @ 200 mls/hr IV Q24H [facility] Last Admin: 04/11/18 17:33 Dose: 200 mls/hr Dextrose/Water (Dextrose 5% In Water) 1,000 mls @ 75 mls/hr IV ASDIRECTED [facility] Last Admin: 04/11/18 23:53 Dose: 75 mls/hr Morphine Sulfate (Morphine 10 Mg/0.5 Ml Oral Syringe) 2.5 mg SL Q4H PRN PRN Reason: Pain (moderate 4-6) Olanzapine (Zyprexa) 5 mg PO TID PRN PRN Reason: Agitation Olanzapine (Zyprexa) 7.5 mg PO 0800,1700 [facility] Last Admin: 04/12/18 08:06 Dose: Not Given Polyethylene Glycol (Miralax) 17 gm PO DAILY PRN PRN Reason: Constipation Tramadol HCl (Ultram) 25 mg PO 0800,1200,1700 [facility] Last Admin: 04/12/18 11:02 Dose: Not Given Valproic Acid (Depakene Syrup) 375 mg PO BID@0800,1700 [facility] Last Admin: 04/12/18 08:05 Dose: Not Given Discontinued Medications Ceftriaxone Sodium (Rocephin) Confirm Administered Dose 1 gm IV .STK-MED ONE Stop: 04/10/18 16:36 Last Admin: 04/10/18 16:57 Dose: Not Given Famotidine (Pepcid) 20 mg IVPUSH DAILY [facility] Last Admin: 04/11/18 08:33 Dose: 20 mg Sodium Chloride (Normal Saline) 1,000 mls @ 999 mls/hr IV ONETIME ONE Stop: 04/10/18 17:06 Last Admin: 04/10/18 16:22 Dose: 999 mls/hr Ceftriaxone Sodium 1 gm/ (Sodium Chloride) 100 mls @ 200 mls/hr IV ONETIME ONE Stop: 04/10/18 16:56 Last Admin: 04/10/18 16:56 Dose: 200 mls/hr Dextrose/Water (Dextrose 5% In Water) 1,000 mls @ 100 mls/hr IV ASDIRECTED [facility] Dextrose/Water (Dextrose 5% In Water) 1,000 mls @ 250 mls/hr IV ASDIRECTED [facility] Potassium Chloride 10 meq/ (Premix) 100 mls @ 100 mls/hr IV Q1H [facility] Stop: 04/11/18 20:59 Last Admin: 04/11/18 15:41 Dose: Not Given Insulin Human Lispro (Humalog) 0 unit SUBCUT QIDACANDBED [facility]; Protocol Insulin Human Lispro (Humalog) 0 unit SUBCUT Q6HR [facility]; Protocol Last Admin: 04/11/18 11:42 Dose: Not Given Morphine Sulfate (Morphine 10 Mg/0.5 Ml Oral Syringe) 2.5 mg SL Q4H PRN PRN Reason: Pain (moderate 4-6) Polyethylene Glycol (Miralax) 17 gm PO DAILY [facility] Tramadol HCl (Ultram) 50 mg PO 0800,1200,1700 [facility] Valproic Acid (Depakene Syrup) 250 mg PO 0800,1700 [facility] - Exam Quality Assessment: Supplemental Oxygen, DVT Prophylaxis HEENT: Pupils Equal, Pupils Reactive Neck: Trachea Midline Lungs: Normal Respiratory Effort Cardiovascular: Regular Rate GI/Abdominal Exam: Normal Bowel Sounds, Soft (Female) Exam: Deferred Extremities: Normal Inspection, Normal Capillary Refill Skin: Warm Neurological: No New Focal Deficit, Other (catatonic) Psy/Mental Status: Other (nonverbal, unable to follow commands) - Problem List & Annotations (1) Hypernatremia SNOMED Code(s): 52340411 Code(s): E87.0 - HYPEROSMOLALITY AND HYPERNATREMIA Status: Acute Current Visit: Yes - Problem List Review Problem List Initiated/Reviewed/Updated: Yes - My Orders Last 24 Hours: My Active Orders 04/11/18 13:45 Morphine [Morphine 10 MG/0.5 ML Oral Syringe] 2.5 mg SL Q4H PRN 04/12/18 09:16 Admission Status [Patient Status] [ADT] Routine - Plan Plan:: Assessment/Plan: Acute: UTI * U/A was done yesterday and was apparently consistent with a UTI per [facility] * Pt was refusing to take PO antibiotics, so was sent to hospital for IVF and IV antibiotics * U/A and culture pending * Rothman catheter placed * Rocephin started in ED--> continue per family request (pt is now comfort measures) Hypernatremia * Likely 2/2 dehydration/decreased oral intake * 152 (yesterday)--> 158 in ED * D5W IVF * Monitor--> PT IS NOW COMFORT MEASURES AND FAMILY DOES NOT WANT MONITORED Increased Confusion * Acute on Chronic * Risk Factors: h/o Dementia, Dehydration, UTI * Fall Precautions * Monitor Failure to Thrive * Risk Factors: h/o Advanced Dementia w/ increased confusion, h/o depression, decreased oral intake * Physical fraility, fatigue, cachetic appearance * Consult CM/SW * Consult PT/OT * PT HAS BEEN CHANGED TO COMFORT MEASURES COMFORT MEASURES * Daughter (Legal guardian) has made decision with family * Only want IVF, Antibiotics, O2 and rothman for now * NO LABS * NPO unless passes swallow eval, then would like sips of water * Continue home medications if she is able to swallow * D/C on COMFORT MEASURES on Saturday with rothman and O2 Chronic: CAD s/p stent x2 HLD HTN NE OA Advanced Alzheimer's Dz Depression Anxiety Breast CA (no biopsy done) Plan: Admit to Medical Floor Routine AM Labs Contact Precautions- MRSA positive NPO DVT/GI prophylaxis CM/SW PT/OT Code Status: DNR/DNI/COMFORT MEASURES; PCP: Dr. Vazquez From [facility]
[2018-04-12] MEDS: Dextrose 5% in Water 1,000 ML IV SCH (12:31)
[2018-04-12] MEDS: cefTRIAXone 1 GM in Sodium Chloride 0.9% 100 ML IV SCH (16:34)
[2018-04-13] MEDS: Dextrose 5% in Water 1,000 ML IV SCH ×2 (01:15→14:47)
[2018-04-13] MEDS: traMADol 50 MG Tab PO SCH ×3 (09:21→18:10)
[2018-04-13] MEDS: Morphine 10 MG/0.5 ML Oral Syringe SL PRN (09:21)
[2018-04-13] MEDS: Valproic Acid 250 MG/5 ML Syrup ML (473 ML Bottle) PO SCH ×2 (09:21→18:10)
[2018-04-13] MEDS: OLANZapine 5 MG Tab PO SCH ×2 (09:22→18:11)
--- NOTE | 2018-04-13 10:21 | PCM.PN ---
- General Info Date of Service: 04/13/18 Functional Status: Reports: Pain Controlled - Review of Systems General: Reports: No Symptoms HEENT: Reports: No Symptoms Pulmonary: Reports: No Symptoms Cardiovascular: Reports: No Symptoms Gastrointestinal: Reports: No Symptoms Genitourinary: Reports: No Symptoms Musculoskeletal: Reports: No Symptoms Skin: Reports: No Symptoms Neurological: Reports: No Symptoms Psychiatric: Reports: No Symptoms - Patient Data Vitals - Most Recent: Last Vital Signs Temp 36.8 C 04/13/18 07:16 Pulse 76 04/13/18 07:16 Resp 18 04/13/18 07:16 BP 104/44 L 04/13/18 07:16 Pulse Ox 93 L 04/13/18 07:16 Weight - Most Recent: 55.367 kg I&O - Last 24 Hours: Intake & Output 04/12/18 04/13/18 04/13/18 22:59 06:59 14:59 Intake Total 825 1005 Output Total 100 250 Balance 725 755 [place] Results Last 24 Hours: Microbiology 04/10/18 22:50 Urine Culture - Final Urine, Clean Catch NO GROWTH AFTER 2 DAYS Med Orders - Current: Current Medications Bisacodyl (Dulcolax) 15 mg PO DAILY PRN PRN Reason: Constipation Bisacodyl (Dulcolax) 10 mg RECTAL DAILY PRN PRN Reason: constipation Dextrose/Water (Dextrose 50% In Water) 50 ml IVPUSH ASDIRECTED PRN PRN Reason: Hypoglycemia Promethazine HCl 6.25 mg/ (Sodium Chloride) 50.25 mls @ 100 mls/hr IV Q6H PRN PRN Reason: Nausea/Vomiting Ceftriaxone Sodium 1 gm/ (Sodium Chloride) 100 mls @ 200 mls/hr IV Q24H [facility] Last Admin: 04/12/18 16:34 Dose: 200 mls/hr Dextrose/Water (Dextrose 5% In Water) 1,000 mls @ 75 mls/hr IV ASDIRECTED [facility] Last Admin: 04/13/18 01:15 Dose: 75 mls/hr Morphine Sulfate (Morphine 10 Mg/0.5 Ml Oral Syringe) 2.5 mg SL Q4H PRN PRN Reason: Pain (moderate 4-6) Last Admin: 04/13/18 09:21 Dose: 2.5 mg Olanzapine (Zyprexa) 5 mg PO TID PRN PRN Reason: Agitation Olanzapine (Zyprexa) 7.5 mg PO 0800,1700 [facility] Last Admin: 04/13/18 09:22 Dose: Not Given Polyethylene Glycol (Miralax) 17 gm PO DAILY PRN PRN Reason: Constipation Tramadol HCl (Ultram) 25 mg PO 0800,1200,1700 [facility] Last Admin: 04/13/18 09:21 Dose: Not Given Valproic Acid (Depakene Syrup) 375 mg PO BID@0800,1700 [facility] Last Admin: 04/13/18 09:21 Dose: Not Given Discontinued Medications Ceftriaxone Sodium (Rocephin) Confirm Administered Dose 1 gm IV .STK-MED ONE Stop: 04/10/18 16:36 Last Admin: 04/10/18 16:57 Dose: Not Given Famotidine (Pepcid) 20 mg IVPUSH DAILY [facility] Last Admin: 04/11/18 08:33 Dose: 20 mg Sodium Chloride (Normal Saline) 1,000 mls @ 999 mls/hr IV ONETIME ONE Stop: 04/10/18 17:06 Last Admin: 04/10/18 16:22 Dose: 999 mls/hr Ceftriaxone Sodium 1 gm/ (Sodium Chloride) 100 mls @ 200 mls/hr IV ONETIME ONE Stop: 04/10/18 16:56 Last Admin: 04/10/18 16:56 Dose: 200 mls/hr Dextrose/Water (Dextrose 5% In Water) 1,000 mls @ 100 mls/hr IV ASDIRECTED [facility] Dextrose/Water (Dextrose 5% In Water) 1,000 mls @ 250 mls/hr IV ASDIRECTED [facility] Potassium Chloride 10 meq/ (Premix) 100 mls @ 100 mls/hr IV Q1H [facility] Stop: 04/11/18 20:59 Last Admin: 04/11/18 15:41 Dose: Not Given Insulin Human Lispro (Humalog) 0 unit SUBCUT QIDACANDBED [facility]; Protocol Insulin Human Lispro (Humalog) 0 unit SUBCUT Q6HR [facility]; Protocol Last Admin: 04/11/18 11:42 Dose: Not Given Morphine Sulfate (Morphine 10 Mg/0.5 Ml Oral Syringe) 2.5 mg SL Q4H PRN PRN Reason: Pain (moderate 4-6) Polyethylene Glycol (Miralax) 17 gm PO DAILY [facility] Tramadol HCl (Ultram) 50 mg PO 0800,1200,1700 [facility] Valproic Acid (Depakene Syrup) 250 mg PO 0800,1700 [facility] - Exam Quality Assessment: Supplemental Oxygen General: Other (catatonic) HEENT: Pupils Equal, Pupils Reactive, EOMI Neck: No JVD Lungs: Normal Respiratory Effort, Decreased Breath Sounds Cardiovascular: Regular Rate GI/Abdominal Exam: Normal Bowel Sounds, Soft, Non-Tender, No Distention (Female) Exam: Deferred Back Exam: Normal Inspection Extremities: Normal Inspection, Slow Capillary Refill Skin: Warm Neurological: No New Focal Deficit Psy/Mental Status: Other (nonverbal) - Problem List & Annotations (1) Hypernatremia SNOMED Code(s): 88913001 Code(s): E87.0 - HYPEROSMOLALITY AND HYPERNATREMIA Status: Acute Current Visit: Yes - Problem List Review Problem List Initiated/Reviewed/Updated: Yes - Plan Plan:: Assessment/Plan: Acute: UTI * U/A was done yesterday and was apparently consistent with a UTI per [facility] * Pt was refusing to take PO antibiotics, so was sent to hospital for IVF and IV antibiotics * U/A and culture pending * Rothman catheter placed * Rocephin started in ED--> continue per family request (pt is now comfort measures) Hypernatremia * Likely 2/2 dehydration/decreased oral intake * 152 (yesterday)--> 158 in ED * D5W IVF * Monitor--> PT IS NOW COMFORT MEASURES AND FAMILY DOES NOT WANT MONITORED Increased Confusion * Acute on Chronic * Risk Factors: h/o Dementia, Dehydration, UTI * Fall Precautions * Monitor Failure to Thrive * Risk Factors: h/o Advanced Dementia w/ increased confusion, h/o depression, decreased oral intake * Physical fraility, fatigue, cachetic appearance * Consult CM/SW * Consult PT/OT * PT HAS BEEN CHANGED TO COMFORT MEASURES COMFORT MEASURES * Daughter (Legal guardian) has made decision with family * Only want IVF, Antibiotics, O2 and rothman for now * NO LABS * NPO unless passes swallow eval, then would like sips of water * Continue home medications if she is able to swallow * D/C on COMFORT MEASURES on Saturday with rotmhan and O2 Chronic: CAD s/p stent x2 HLD HTN NE OA Advanced Alzheimer's Dz Depression Anxiety Breast CA (no biopsy done) Plan: Admit to Medical Floor Routine AM Labs Contact Precautions- MRSA positive NPO DVT/GI prophylaxis CM/SW PT/OT Code Status: DNR/DNI/COMFORT MEASURES; PCP: Dr. Vazquez From [facility] DC on 04/14/18 Sublingual morphine; DC oral meds; DC Rocephin
[2018-04-13] MEDS: cefTRIAXone 1 GM in Sodium Chloride 0.9% 100 ML IV SCH (17:15)
[2018-04-14] MEDS: Dextrose 5% in Water 1,000 ML IV SCH (04:07)
[2018-04-14] MEDS: Valproic Acid 250 MG/5 ML Syrup ML (473 ML Bottle) PO SCH (08:58)
[2018-04-14] MEDS: traMADol 50 MG Tab PO SCH ×2 (08:59→11:16)
[2018-04-14] MEDS: OLANZapine 5 MG Tab PO SCH (08:59)
--- NOTE | 2018-04-14 09:44 | PCM.DCSUM1 ---
Discharge Summary - Hospital Course Free Text/Narrative:: 83 year old female presented with AMS change with AUTI and hypernatremia. She was treated with IVF, and Rocephin. The patient has multiple comorbidities including severe Alzheimer dementia. In December, she was admitted to [facility] for reportedly combative behavior. During the course of her admission code status was discussed. Three family meetings took place. The total time spent collectively was 60 minutes. The family decided on DNR/DNI with comfort care. She will be able to return on 04/14/18. All meds have been stopped except morphine SL. She has not been communicating, following simple commands and appears catatonic. O2 has been required to maintain O2 sat >92%. A Rothman cath was also placed for this admission. She will be DCd with the Rothman and oxygen. Primary Dx Failure to thrive Dehydration Hypernatremia AUTI Alzheimer dementia HPI Initial Comments: This is an 83 yo female from [facility] with past medical h/o CAD s/p stent x2, HLD, HTN, OH, OA, Advanced Alzheimer's Dz, Depression, Anxiety, Breast CA who comes in for UTI and hypernatremia. History is obtained from family in the ED, as patient is demented and currently nonverbal. Per family, pt has increased confusion and decreased oral intake this week. U/A was done yesterday at [facility] and was apparently consistent with a UTI. Pt was refusing to take PO antibiotics, so was sent to us for IVF and IV antibiotics. Her initial workup in the ED shows her chemistry is remarkable for Na 158, Cl 119, AGap 15.7, BUN 51, Cr 1.5, GFR 33, Glu 117. A BMP, CBC, and UA were obtained yesterday. ED had difficulty reading the facts of the lab results, but her Na was either 152 or 162, with a BUN/Cr of 37/1.15. Her CBC was remarkable only for platelets depressed at 68. Her UA was apparently consistent with a UTI per [facility]. She is subsequently admitted to the medical floor. She is a DNR/DNI. PCP is Dr. Vazquez. She is from [facility]. Diagnosis: Stroke: No - Discharge Data Discharge Date: 04/14/18 Discharge Disposition: DC/Tfer to SNF 03 Condition: Stable - Discharge Diagnosis/Problem(s) (1) Hypernatremia SNOMED Code(s): 30293473 ICD Code: E87.0 - HYPEROSMOLALITY AND HYPERNATREMIA Status: Acute Current Visit: Yes - Patient Summary/Data Consults: Consultations 04/10/18 18:57 Consult to Case Management/Landscape Nurseryman [CONS] Routine - Patient Instructions Diet: NPO Activity: Bedrest Driving: Do Not Drive Showering/Bathing: No Showering Notify Provider of: Fever, Increased Pain, Nausea and/or Vomiting - Discharge Plan *PRESCRIPTION DRUG MONITORING PROGRAM REVIEWED*: Not Applicable *COPY OF PRESCRIPTION DRUG MONITORING REPORT IN PATIENT SVETLANA: Not Applicable Prescriptions/Med Rec: Morphine [Morphine 20 MG/ML Soln] 2.5 mg SL Q4H PRN #10 bottle PRN Reason: Pain (Moderate 4-6) Home Medications: Home Meds Morphine [Morphine 20 MG/ML Soln] 2.5 mg SL Q4H PRN #10 bottle 04/11/18 [Rx] Oxygen Therapy Mode: Room Air Patient Handouts: Hypernatremia, Urinary Tract Infection, Adult, Dementia, Easy -to-Read, Failure to Thrive, Adult Referrals: Ricky Redman MD [Primary Care Provider] - - Discharge Summary/Plan Comment DC Time >30 min.: No Discharge Summary/Plan Comment: Acute: UTI * U/A was done yesterday and was apparently consistent with a UTI per [facility] * Pt was refusing to take PO antibiotics, so was sent to hospital for IVF and IV antibiotics * U/A and culture pending * Rothman catheter placed * Rocephin started in ED--> continue per family request (pt is now comfort measures) Hypernatremia * Likely 2/2 dehydration/decreased oral intake * 152 (yesterday)--> 158 in ED * D5W IVF * Monitor--> PT IS NOW COMFORT MEASURES AND FAMILY DOES NOT WANT MONITORED Increased Confusion * Acute on Chronic * Risk Factors: h/o Dementia, Dehydration, UTI * Fall Precautions * Monitor Failure to Thrive * Risk Factors: h/o Advanced Dementia w/ increased confusion, h/o depression, decreased oral intake * Physical fraility, fatigue, cachetic appearance * Consult CM/SW * Consult PT/OT * PT HAS BEEN CHANGED TO COMFORT MEASURES COMFORT MEASURES * Daughter (Legal guardian) has made decision with family * Only want IVF, Antibiotics, O2 and rothman for now * NO LABS * NPO unless passes swallow eval, then would like sips of water * Continue home medications if she is able to swallow * D/C on COMFORT MEASURES on Saturday with rothman and O2 Chronic: CAD s/p stent x2 HLD HTN [place] OA Advanced Alzheimer's Dz Depression Anxiety Breast CA (no biopsy done) Plan: Admit to Medical Floor Routine AM Labs Contact Precautions- MRSA positive NPO DVT/GI prophylaxis CM/SW PT/OT Code Status: DNR/DNI/COMFORT MEASURES; PCP: Dr. Vazquez From [facility] home DC on 04/14/18 Sublingual morphine; DC oral meds; DC Rocephin; continue Rothman cath; continue O2 2-3 l/m - General Info Date of Service: 04/10/18 - Review of Systems General: Reports: No Symptoms HEENT: Reports: No Symptoms Pulmonary: Reports: No Symptoms Cardiovascular: Reports: No Symptoms Gastrointestinal: Reports: No Symptoms Genitourinary: Reports: No Symptoms Musculoskeletal: Reports: No Symptoms Skin: Reports: No Symptoms Neurological: Reports: No Symptoms Psychiatric: Reports: No Symptoms - Patient Data Vitals - Most Recent: Last Vital Signs Temp 37.1 C 04/14/18 07:46 Pulse 91 04/14/18 07:46 Resp 20 04/14/18 07:46 BP 128/48 L 04/14/18 07:46 Pulse Ox 95 04/14/18 07:46 Weight - Most Recent: 55.367 kg I&O - Last 24 hours: Intake & Output 04/13/18 04/14/18 04/14/18 22:59 06:59 14:59 Intake Total 813 1009 Output Total 150 200 Balance 663 809 Med Orders - Current: Current Medications Bisacodyl (Dulcolax) 15 mg PO DAILY PRN PRN Reason: Constipation Bisacodyl (Dulcolax) 10 mg RECTAL DAILY PRN PRN Reason: constipation Dextrose/Water (Dextrose 50% In Water) 50 ml IVPUSH ASDIRECTED PRN PRN Reason: Hypoglycemia Promethazine HCl 6.25 mg/ (Sodium Chloride) 50.25 mls @ 100 mls/hr IV Q6H PRN PRN Reason: Nausea/Vomiting Ceftriaxone Sodium 1 gm/ (Sodium Chloride) 100 mls @ 200 mls/hr IV Q24H [facility] Last Admin: 04/13/18 17:15 Dose: 200 mls/hr Dextrose/Water (Dextrose 5% In Water) 1,000 mls @ 75 mls/hr IV ASDIRECTED [facility] Last Admin: 04/14/18 04:07 Dose: 75 mls/hr Morphine Sulfate (Morphine 10 Mg/0.5 Ml Oral Syringe) 2.5 mg SL Q4H PRN PRN Reason: Pain (moderate 4-6) Last Admin: 04/13/18 09:21 Dose: 2.5 mg Olanzapine (Zyprexa) 5 mg PO TID PRN PRN Reason: Agitation Olanzapine (Zyprexa) 7.5 mg PO 0800,1700 [facility] Last Admin: 04/14/18 08:59 Dose: Not Given Polyethylene Glycol (Miralax) 17 gm PO DAILY PRN PRN Reason: Constipation Tramadol HCl (Ultram) 25 mg PO 0800,1200,1700 [facility] Last Admin: 04/14/18 08:59 Dose: Not Given Valproic Acid (Depakene Syrup) 375 mg PO BID@0800,1700 [facility] Last Admin: 04/14/18 08:58 Dose: Not Given Discontinued Medications Ceftriaxone Sodium (Rocephin) Confirm Administered Dose 1 gm IV .STK-MED ONE Stop: 04/10/18 16:36 Last Admin: 04/10/18 16:57 Dose: Not Given Famotidine (Pepcid) 20 mg IVPUSH DAILY [facility] Last Admin: 04/11/18 08:33 Dose: 20 mg Sodium Chloride (Normal Saline) 1,000 mls @ 999 mls/hr IV ONETIME ONE Stop: 04/10/18 17:06 Last Admin: 04/10/18 16:22 Dose: 999 mls/hr Ceftriaxone Sodium 1 gm/ (Sodium Chloride) 100 mls @ 200 mls/hr IV ONETIME ONE Stop: 04/10/18 16:56 Last Admin: 04/10/18 16:56 Dose: 200 mls/hr Dextrose/Water (Dextrose 5% In Water) 1,000 mls @ 100 mls/hr IV ASDIRECTED [facility] Dextrose/Water (Dextrose 5% In Water) 1,000 mls @ 250 mls/hr IV ASDIRECTED [facility] Potassium Chloride 10 meq/ (Premix) 100 mls @ 100 mls/hr IV Q1H [facility] Stop: 04/11/18 20:59 Last Admin: 04/11/18 15:41 Dose: Not Given Insulin Human Lispro (Humalog) 0 unit SUBCUT QIDACANDBED [facility]; Protocol Insulin Human Lispro (Humalog) 0 unit SUBCUT Q6HR [facility]; Protocol Last Admin: 04/11/18 11:42 Dose: Not Given Morphine Sulfate (Morphine 10 Mg/0.5 Ml Oral Syringe) 2.5 mg SL Q4H PRN PRN Reason: Pain (moderate 4-6) Polyethylene Glycol (Miralax) 17 gm PO DAILY [facility] Tramadol HCl (Ultram) 50 mg PO 0800,1200,1700 [facility] Valproic Acid (Depakene Syrup) 250 mg PO 0800,1700 [facility] - Exam Quality Assessment: Reports: Supplemental Oxygen, Urine Catheter HEENT: Reports: Pupils Equal, Pupils Reactive Neck: Reports: Trachea Midline, No JVD Lungs: Reports: Normal Respiratory Effort Cardiovascular: Reports: Regular Rate GI/Abdominal Exam: Normal Bowel Sounds, Soft (Female) Exam: Deferred Rectal (Female) Exam: Deferred Back Exam: Reports: Normal Inspection Extremities: Normal Inspection Skin: Reports: Warm Neurological: Reports: No New Focal Deficit
[2018-04-14] MEDS: Morphine 10 MG/0.5 ML Oral Syringe SL PRN ×2 (10:11→13:33)
== END 2018-04-14 14:04 | DRG 690 ==
LOC: JD.ED 15:27 → JD.MS 16:39
PROVIDERS: ADMIT Internal Medicine Cardiovascular Disease; ATTEND Internal Medicine Cardiovascular Disease
DX: N39.0 Urinary tract infection, site not specified (principal); E87.0 Hyperosmolality and hypernatremia; F02.81 Dementia in other diseases classified elsewhere, unspecified severity, with behavioral disturbance; R64 Cachexia; E86.0 Dehydration; E86.9 Volume depletion, unspecified; H54.7 Unspecified visual loss; I25.10 Atherosclerotic heart disease of native coronary artery without angina pectoris; E78.00 Pure hypercholesterolemia, unspecified; F02.80 Dementia in other diseases classified elsewhere, unspecified severity, without behavioral disturbance, psychotic disturbance, mood disturbance, and anxiety; I10 Essential (primary) hypertension; M19.90 Unspecified osteoarthritis, unspecified site; G30.9 Alzheimer's disease, unspecified; F41.9 Anxiety disorder, unspecified; F32.9 Major depressive disorder, single episode, unspecified; R73.03 Prediabetes; E78.5 Hyperlipidemia, unspecified; G47.00 Insomnia, unspecified; R62.7 Adult failure to thrive; R41.82 Altered mental status, unspecified; I25.2 Old myocardial infarction; Z85.3 Personal history of malignant neoplasm of breast; Z95.5 Presence of coronary angioplasty implant and graft; Z90.49 Acquired absence of other specified parts of digestive tract; R00.0 Tachycardia, unspecified; R41.0 Disorientation, unspecified; Z87.891 Personal history of nicotine dependence; Z66 Do not resuscitate; Z91.14 Patient's other noncompliance with medication regimen; Z88.8 Allergy status to other drugs, medicaments and biological substances; Z88.1 Allergy status to other antibiotic agents; Z91.040 Latex allergy status; Z79.899 Other long term (current) drug therapy; Z22.322 Carrier or suspected carrier of Methicillin resistant Staphylococcus aureus; Z51.5 Encounter for palliative care
CPT/HCPCS: 36415; 80048; 96361; 99285; J7040; 51702; 81001; 82962; 83735; 85025; 86140; 87086; 87641; 94760; 96365; A9270-GY; J0696; J1815; J3490; J7030; J7060